=== PATIENT | female | born 2000 | race American Indian/Alaskan Native ===

== ENCOUNTER 2020-07-04 18:05 | Outpatient (CLI) | payer OTHER ==
[2020-07-04 18:51] VITALS: BP 121/78
== END 2020-07-04 19:12 | disposition home or self-care (01) ==
LOC: TRG 18:05 → APU 18:06 → TRG 19:12
PROVIDERS: ATTEND Obstetrics & Gynecology
DX: O42.92 Full-term premature rupture of membranes, unspecified as to length of time between rupture and onset of labor (principal); Z3A.38 38 weeks gestation of pregnancy
CPT/HCPCS: 59025

== ENCOUNTER 2020-07-22 20:35 | Inpatient (IN) | payer OTHER ==
[2020-07-22] MEDS ORDERED: DINOPROSTONE 10 MG VAG SUPP VG ONE (20:38)
[2020-07-22] MEDS ORDERED: TERBUTALINE 1 MG/1 ML INJ SUB-Q PRN (20:38)
[2020-07-22] MEDS ORDERED: fentaNYL 100 MCG/2 ML INJ IV PRN (20:38)
[2020-07-22] MEDS ORDERED: LIDOCAINE (2%) 20 MG/1 ML VIAL 20 ML MDV INFILTRATI ONE (20:38)
[2020-07-22] MEDS ORDERED: METHYLERGONOVINE MALEATE 0.2 MG/ML VIAL IM PRN (20:38)
[2020-07-22] MEDS ORDERED: ePHEDrine SULFATE 50 MG/1 ML INJ IV PRN (20:38)
[2020-07-22] MEDS ORDERED: ACETAMINOPHEN 325 MG TAB PO PRN (20:38)
[2020-07-22] MEDS ORDERED: MINERAL OIL 30 ML ORAL LIQD PO PRN (20:38)
[2020-07-22] MEDS ORDERED: OXYTOCIN 10 UNIT/1 ML INJ IM PRN (20:38)
[2020-07-22] MEDS ORDERED: miSOPROStol 200 MCG TAB PR PRN (20:38)
[2020-07-22] MEDS ORDERED: ONDANSETRON 4 MG/2 ML INJ IV PRN (20:38)
--- NOTE | 2020-07-22 20:45 | History and Physical Report ---
History of Present Illness Date of examination: 07/22/20 (pt presents for IOL @ 41w) Date of admission: 07/22/20 20:35 History of present illness: EDC Confirmation: 07/14/2020 Gestational Age: 41w Past History : 1 Term Births: 0 Premature Births: 0 Living Children: 0 Para: 0 Mult. Births: 0 Prev : 0 Aborta: 0 Elect. Ab: 0 Spont. Ab: 0 Ectopics: 0 Past Medical History: Reviewed history from 10/27/2019 and no changes required: Negative Past Medical History Past Surgical History: Reviewed history from 10/27/2019 and no changes required: negative Past Medical History Anesthesia Complications: negative Anemia: negative Autoimmune Disorder: negative Bleeding Disorder: negative Blood Transfusions: negative Breast Disease: negative Diabetes: negative Heart Disease: negative Hypertension: negative Hepatitis/Liver Disease: negative Kidney Disease/UTI: negative Neurologic/Epilepsy/Migraines: negative Phlebitis/Varicosities: negative Psychiatric: negative Pulmonary Disease/Asthma: negative Thyroid Disease: negative Hospitalizations: negative Surgery (Non-cable assembler): negative Abnormal PAP: negative TELLY Exposure: negative Infertility: negative Uterine Anomaly: negative Uterine Surgery (not C/S): negative Other Gynecologic Problems: negative Social Hx: Patient is single Smoking History: Patient has never smoked. +etoh, no tobacco, no drugs Infection History Hx of STD: none HIV Risk Eval: low risk Hepatitis B Risk Eval: low risk Personal hx. of genital herpes: no Partner hx. of genital herpes: no Rash, Viral, or Febrile illness since last LMP? no Varicella/Chicken Pox Status: No TB Risk: no Genetic History Congenital Heart Defect: Mom: no Dad: no Dimitri Disease: Mom: no Dad: no Thalassemia Mom: no Dad: no Neural Tube Defect Mom: no Dad: no Down's Syndrome Mom: no Dad: no Alfie-Sachs Mom: no Dad: no Sickle Cell Disease/Trait Mom: no Dad: no Hemophilia Mom: no Dad: no Muscular Dystrophy Mom: no Dad: no Cystic Fibrosis Mom: no Dad: no [place] Chorea Mom: no Dad: no Mental Retardation Mom: no Dad: no Fragile X Mom: no Dad: no Other Genetic/Chromosomal Disorder Mom: no Dad: no Child w/other defect Mom: no Dad: no Enviromental Exposures Xray Exposure: no Medication, drug, or alcohol use since LMP: no Chemical/Other Exposure: no Exposure to Cat Liter: no Hx of Parvovirus (Fifth Disease): no Occupational Exposure to Children: none Active Medications (reviewed today): None Current Allergies (reviewed today): * ADHESIVE (Critical) Past History - Obstetrical History Expected Date of Delivery: 07/14/20 Actual Gestation: 41 Week(s) 2 Day(s) : 1 Para: 0 Hx # Term Pregnancies: 0 Number of Pregnancies: 0 Spontaneous Abortions: 0 Induced : 0 Number of Living Children: 0 Medications and Allergies Allergies Allergy/AdvReac Type Severity Reaction Status Date / Time No Known Allergies Allergy Unverified 07/04/20 18:45 Home Medications Medication Instructions Recorded Confirmed Last Taken Type Ferrous Sulfate 324 MG 325 mg PO DAILY 07/22/20 07/22/20 07/22/20 History 325 MG No Known Home Medications [No 07/22/20 07/22/20 Unknown History Reported Home Medications] Active Meds: Active Medications Acetaminophen (Acetaminophen 325 Mg Tab) 650 mg PO Q4H PRN PRN Reason: Pain, Mild (1-3) Dinoprostone (Dinoprostone 10 Mg Vag Supp) 10 mg VG ONCE ONE Stop: 07/22/20 20:39 Ephedrine Sulfate (Ephedrine Sulfate 50 Mg/1 Ml Inj) 10 mg IV Q2M PRN PRN Reason: Hypotension Fentanyl (Fentanyl 100 Mcg/2 Ml Inj) 100 mcg IV Q2H PRN PRN Reason: Pain,Severe (7-10) LABOR PAIN Lactated Ringer's (Lactated Ringers) 1,000 mls @ 125 mls/hr IV DIRECT FADIA Oxytocin/Sodium Chloride (Pitocin/Ns 30 Unit/500ml) 30 units in 500 mls @ 40 mls/hr IV TITR FADIA; Protocol Lidocaine (Lidocaine (2%) 20 Mg/1 Ml Vial 20 Ml Mdv) 20 ml INFILTRATI ONCE ONE Stop: 07/22/20 20:39 Methylergonovine Maleate (Methylergonovine Maleate 0.2 Mg/Ml Vial) 0.2 mg IM ONCE PRN PRN Reason: Uterine Bleeding Mineral Oil (Mineral Oil 30 Ml Oral Liqd) 30 ml PO QHS PRN PRN Reason: Constipation Misoprostol (Misoprostol 200 Mcg Tab) 800 mcg SD ONCE PRN PRN Reason: Uterine Bleeding Ondansetron HCl (Ondansetron 4 Mg/2 Ml Inj) 4 mg IV Q8H PRN PRN Reason: Nausea And Vomiting Oxytocin (Oxytocin 10 Unit/1 Ml Inj) 10 unit IM ONCE PRN PRN Reason: Uterine Bleeding Terbutaline Sulfate (Terbutaline 1 Mg/1 Ml Inj) 0.25 mg SUB-Q ONCE PRN PRN Reason: Hyperstimulation/Hypertonicity - Physical Exam Breasts: Positive: deferred Cardiovascular: Regular rate, Normal S1, Normal S2 Lungs: Positive: Normal air movement Abdomen: Positive: normal appearance, soft, normal bowel sounds. Negative: distention, tenderness Genitourinary (Female): Positive: normal external genitalia Vulva: both: normal Vagina: Positive: normal moisture. Negative: discharge Cervix: Negative: lesion, discharge Uterus: Positive: normal size, normal contour Adnexa: both: normal Anus/Rectum: Positive: normal perianal skin, heme negative. Negative: rectal mass, hemorrhoids Extremities: Positive: normal Deep Tendon Reflex Grade: Normal +2 - Obstetrical FHR: auscultation normal, category 1 Uterine Contraction Monitor Mode: External Cervical Dilatation: 0 (per RN when cervidil ws placed) Cervical Effacement Percentage: 0 station: -2 Uterine Contraction Pattern: Irregular Uterine Tone Measurement Phase: Resting Uterine Contraction Intensity: Mild Results Result Diagrams: 07/22/20 21:20 All other labs normal. GBS POSITIVE HBsAg Screen Negative Negative *1 RPR Non Reactive Non Reactive *2 Rubella Antibodies, IgG 6.27 index Immune >0.99 *3 Non-immune <0.90 Equivocal 0.90 - 0.99 Immune >0.99 ABO Grouping O *4 Rh Factor Positive *5 Please note: Prior records for this patient's ABO / Rh type are not available for additional verification. Antibody Screen Negative Negative *6 WBC 7.2 x10E3/uL 3.4-10.8 *7 RBC 3.98 x10E6/uL 3.77-5.28 *8 Hemoglobin 12.1 g/dL 11.1-15.9 *9 Hematocrit 36.0 % 34.0-46.6 *10 MCV 91 fL 79-97 *11 MCH 30.4 pg 26.6-33.0 *12 MCHC 33.6 g/dL 31.5-35.7 *13 RDW 14.4 % 11.7-15.4 *14 Platelets 208 x10E3/uL 150-450 *15 Neutrophils 70 % Not Estab. *16 Lymphs 19 % Not Estab. *17 Monocytes 8 % Not Estab. *18 Eos 3 % Not Estab. *19 Basos 0 % Not Estab. *20 ! Immature Cells <No Reported Value> *21 Neutrophils (Absolute) 5.0 x10E3/uL 1.4-7.0 *22 Lymphs (Absolute) 1.3 x10E3/uL 0.7-3.1 *23 Monocytes(Absolute) 0.6 x10E3/uL 0.1-0.9 *24 Eos (Absolute) 0.2 x10E3/uL 0.0-0.4 *25 Baso (Absolute) 0.0 x10E3/uL 0.0-0.2 *26 ! Immature Granulocytes 0 % Not Estab. *27 ! Immature Grans (Abs) 0.0 x10E3/uL 0.0-0.1 *28 ! NRBC <No Reported Value> *29 Hematology Comments: <No Reported Value> *30 Tests: (2) HIV Ag/Ab with Reflex ([id number]) HIV Screen 4th Generation wRfx Non Reactive Non Reactive *31 Tests: (3) HCV Ab w/Rflx to Verification ([id number]) ! HCV Ab <0.1 s/co ratio 0.0-0.9 *32 Tests: (4) Comment: ([id number]) ! Comment: SPRCS *33 Non reactive HCV antibody screen is consistent with no HCV infection, unless recent infection is suspected or other evidence exists to indicate HCV infection. Assessment and Plan 20yo @ 41w for IOL GBS+ All orders in EMR - Patient Problems (1) Group B Streptococcus carrier state affecting Onset Date: ~07/22/20 Current Visit: Yes Status: Acute Plan to address problem: Ampicillin per protocol started
[2020-07-22] MEDS ORDERED: AMPICILLIN/NS 2 GM/100 ML 2 GM/100 ML BAG IV ONE (20:50)
[2020-07-22] MEDS ORDERED: AMPICILLIN/NS 1 GM/50 ML 1 GM/50 ML BAG IV SCH (21:00)
[2020-07-22] MEDS: LACTATED RINGERS 1,000 ML IV SCH (21:55)
[2020-07-22 22:23] LABS: Hematocrit 35.4 % (30.3-42.9); Hemoglobin 11.9 gm/dl (10.1-14.3); Mean Corpuscular HGB Conc 34 % (30-34); Mean Corpuscular Volume 90 fl (79-97); Platelet Count 182 K/mm3 (140-440); Red Blood Count 3.96 M/mm3 (3.65-5.03); Red Cell Distribution Width 18.3 % (13.2-15.2)
[2020-07-23] MEDS: LACTATED RINGERS 1,000 ML IV SCH ×4 (05:04→21:54)
[2020-07-23] MEDS ORDERED: AMPICILLIN/NS 2 GM/100 ML 2 GM/100 ML BAG IV ONE (06:45)
--- NOTE | 2020-07-23 07:38 | Progress Note ---
Assessment and Plan A: 20 y.o. @ 41+ wks, IOL for postdates. Cervical exam: 0/-3. P: Remove Cervidil @ 1045 AM. After Cervidil removal: Shower eat. Start Pitocin at noon. Cervical exam by 6pm, if unchanged, insert another Cervidil. Subjective - Subjective Date of service: 07/23/20 Principal diagnosis: IUP 41+, IOL for postdates Patient reports: movement normal Objective - Vital Signs Vital Signs: Vital Signs - 12hr 07/22/20 07/22/20 07/23/20 20:57 21:20 00:56 Temperature 98.1 F Pulse Rate 96 H 78 Respiratory 18 Rate Blood Pressure 123/72 135/88 07/23/20 07/23/20 01:20 05:20 Temperature 98.5 F 98.4 F Pulse Rate Respiratory Rate Blood Pressure - Exam Breasts: deferred Cardiovascular: Regular rate Lungs: Normal air movement Abdomen: Present: normal appearance, soft Vulva: both: normal Uterus: Present: normal FHR: category 1 Uterine Contraction Monitor Mode: External Cervical Dilatation: 0 Cervical Effacement Percentage: 30 station: -3 Uterine Contraction Pattern: Irregular Uterine Contraction Intensity: Mild Extremities: normal Deep Tendon Reflex Grade: Normal +2 - Labs Labs: Abnormal Labs 07/22/20 21:20 RDW 18.3 H Laboratory Results - last 24 hr 07/22/20 07/22/20 07/22/20 21:20 21:20 21:20 WBC 9.4 RBC 3.96 Hgb 11.9 Hct 35.4 MCV 90 MCH 30 MCHC 34 RDW 18.3 H Plt Count 182 Syphilis IgG Antibody Nonreactive Blood Type O POSITIVE Antibody Screen Negative
[2020-07-23] MEDS ORDERED: OXYTOCIN DRIP 30 UNITS/500 ML BAG IV SCH (12:00)
[2020-07-23] MEDS: OXYTOCIN DRIP 30 UNITS/500 ML BAG IV SCH (12:05)
--- NOTE | 2020-07-23 17:00 | Progress Note ---
Assessment and Plan A: 20 y.o. @ 41 + wks, IOL for postdates. Cervical exam 1.5/50/-3. SROM @ 2pm for clear fluids. P: Low does Pitocin for continued cervical ripening. Subjective - Subjective Date of service: 07/23/20 (SROM @ 2pm clear fluids) Principal diagnosis: IUP 41+, IOL for postdates Patient reports: movement normal Objective - Vital Signs Vital Signs: Vital Signs - 12hr 07/23/20 07/23/20 07/23/20 05:20 08:20 08:25 Temperature 98.4 F 97.9 F Pulse Rate 86 86 Respiratory 18 Rate Blood Pressure 120/79 Blood Pressure 120/79 [Right] 07/23/20 12:07 Temperature Pulse Rate 90 Respiratory Rate Blood Pressure 112/68 Blood Pressure [Right] - Exam Narrative Exam: Was informed by RN that patient had SROM at 2pm for clear fluids. Cervical exam 1.5/50/-3. Plan for the night discussed with patient. Will start continue Pitocin for now and then switch to low dose tonight. Pt verbalized understanding and agrees to plan. made Dr. Sahu aware of pt status. Breasts: deferred Cardiovascular: Regular rate Lungs: Normal air movement Abdomen: Present: normal appearance, soft Vulva: both: normal Uterus: Present: normal FHR: category 1 Uterine Contraction Monitor Mode: External Cervical Dilatation: 1.5 (Clear fluid on glove noted. ) Cervical Effacement Percentage: 50 station: -3 Uterine Contraction Pattern: Regular Uterine Tone Measurement Phase: Resting Uterine Contraction Intensity: Moderate Extremities: normal Deep Tendon Reflex Grade: Normal +2 - Labs Labs: Abnormal Labs 07/22/20 07/23/20 21:20 14:52 RDW 18.3 H Membranes Rupture Positive A Laboratory Results - last 24 hr 07/22/20 07/22/20 07/22/20 21:20 21:20 21:20 WBC 9.4 RBC 3.96 Hgb 11.9 Hct 35.4 MCV 90 MCH 30 MCHC 34 RDW 18.3 H Plt Count 182 Membranes Rupture Syphilis IgG Antibody Nonreactive Coronavirus (PCR) Blood Type O POSITIVE Antibody Screen Negative 07/23/20 07/23/20 14:52 Unknown WBC RBC Hgb Hct MCV MCH MCHC RDW Plt Count Membranes Rupture Positive A Syphilis IgG Antibody Coronavirus (PCR) Blood Type Antibody Screen
[2020-07-23] MEDS ORDERED: BUTORPHANOL 2 MG/1 ML INJ ONE (17:22)
[2020-07-23] MEDS: BUTORPHANOL 2 MG/1 ML INJ IV PRN ×2 (17:40→20:20)
--- NOTE | 2020-07-23 20:57 | Event Note ---
Date: 07/23/20 (Pt requesting more pain medication.) Per RN pt requesting more pain medication. Cervical exam /2, BBOW. AROM clear fluid. Category 1 strip currently. Will continue with Pitocin. Anticipate .
[2020-07-23] MEDS ORDERED: NalbUPHINE 10 MG/1 ML INJ IV PRN (21:52)
[2020-07-23] MEDS ORDERED: ePHEDrine SULFATE 50 MG/1 ML INJ IV PRN (21:52)
[2020-07-23] MEDS ORDERED: diphenhydrAMINE 50 MG/ML VIAL IV PRN (21:52)
[2020-07-23] MEDS ORDERED: NALOXONE 2 MG/2 ML INJ IV PRN (21:52)
[2020-07-23] MEDS ORDERED: fentaNYL-BUPIV 2 MCG/ML-0.125% 200 MCG/100 ML BAG EPIDURAL SCH (22:00)
--- NOTE | 2020-07-23 22:17 | Anesthesia Consultation ---
Anesthesia Consult and Med Hx Date of service: 07/23/20 - Airway Anesthetic Teeth Evaluation: Good ROM Head & Neck: Adequate Mental/Hyoid Distance: Adequate Mallampati Class: Class II Intubation Access Assessment: Probably Good - Pulmonary Exam CTA: Yes - Cardiac Exam Cardiac Exam: RRR - Pre-Operative Health Status ASA Pre-Surgery Classification: ASA2 Proposed Anesthetic Plan: Epidural - Pulmonary Hx Smoking: No Hx Asthma: No COPD: No Hx Pneumonia: No Hx Sleep Apnea: No - Cardiovascular System Hx Hypertension: No Hx Heart Attack/AMI: No Hx Angina: No - Central Nervous System Hx Seizures: No Hx Psychiatric Problems: No - Gastrointestinal Hx Gastroesophageal Reflux Disease: No - Endocrine Hx Renal Disease: No Hx End Stage Renal Disease: No Hx Insulin Dependent Diabetes: No Hx Non-Insulin Dependent Diabetes: No Hx Hypothyroidism: No Hx Hyperthyroidism: No - Hematic Hx Anemia: No Hx Sickle Cell Disease: No - Other Systems Hx Alcohol Use: No
--- NOTE | 2020-07-23 22:18 | Progress Note ---
Labor Epidural - Labor Epidural Start Time: 21:55 Stop Time: 22:10 Performed by:: JUNIOR AGARWAL Procedure: Patient is requesting a laboring epidural for laboring pain. Patient IDed, H&P reviewed, all questions and concerns were answered, and consent was signed. Timeout was performed at bedside. Patient in sitting position. Sterile prep and drape was performed. 3ml of 1% lidocaine skin wheal at L[3]- L [4]. 18- gauge Touhy epidural needle was advanced to loss of resistance with air technique. Negative CSF negative blood. Epidural catheter advanced to [12] centimeters. [-] Aspiration [-] test dose. Sterile dressing applied. Patient tolerated procedure.
[2020-07-24] MEDS ORDERED: SODIUM CHLORIDE 0.9% 1000 ML 1,000 ML ONE (00:26)
[2020-07-24] MEDS ORDERED: SODIUM CHLORIDE 0.9% 100 ML IVPB IV SCH (01:00)
[2020-07-24] MEDS ORDERED: BICITRA ORAL LIQD 30ML PO ONE (01:21)
[2020-07-24] MEDS ORDERED: METOCLOPRAMIDE 10 MG/2 ML INJ IV ONE (01:21)
[2020-07-24] MEDS ORDERED: FAMOTIDINE 20 MG/2 ML INJ IV ONE (01:21)
--- NOTE | 2020-07-24 01:26 | Event Note ---
Date: 07/24/20 (Primary ) Pt with unchanged cervical exam for the last 3 hours with category 2 monitor tracing. Discussed with patient little change in cervix and heart rate going down with contractions. We also discussed that at this time we are unable to titrate medication up higher without baby's heart rate going down. At this time it was recommended that the mode of delivery will possibly be a c- section. Pt verbalized understanding. Consents signed an on chart. Pre op orders on chart. RN taking care of patient, anesthesia, and supervisor propellant charge loading aware. Pt being prepped for .
[2020-07-24] MEDS ORDERED: ceFAZolin/Water 2 GM/20 ML 2 GM/20 ML SYRINGE IV ONE (02:07)
[2020-07-24] MEDS ORDERED: BUPIVACAINE/PF (0.5%) 5 MG/1 ML 30 ML VIAL INFILTRATI ONE (02:46)
[2020-07-24] MEDS ORDERED: LIDOCAINE 2%/EPINEPHRINE 1:200,000 VIAL (20 ML) INFILTRATI ONE (02:46)
[2020-07-24] MEDS ORDERED: KETOROLAC 30 MG/1 ML INJ ONE (02:46)
[2020-07-24] MEDS ORDERED: ONDANSETRON 4 MG/2 ML INJ ONE (02:46)
[2020-07-24] MEDS ORDERED: ceFAZolin/STERILE WATER 2 GM/20 ML SYRINGE IV ONE (03:35)
[2020-07-24] MEDS ORDERED: WATER FOR IRRIG STERILE 1,500 ML BOTTLE IR ONE (03:38)
[2020-07-24] MEDS ORDERED: SODIUM CHLORIDE 0.9% IRR 1,500 ML BOTTLE IR ONE (03:38)
[2020-07-24] MEDS: OXYTOCIN DRIP 30 UNITS/500 ML BAG IV SCH (03:45)
[2020-07-24] MEDS ORDERED: LACTATED RINGERS 1,000 ML ONE (03:57)
[2020-07-24] MEDS ORDERED: NALOXONE 0.4 MG/1 ML INJ IV PRN (04:20)
[2020-07-24] MEDS ORDERED: WITCH HAZEL/ GLYCERIN PAD TP PRN (04:20)
[2020-07-24] MEDS ORDERED: LANOLIN/ZINC/DIMETHICONE (LANSINOH) 7 GM TP PRN (04:20)
--- NOTE | 2020-07-24 04:24 | Operative Report ---
Operative Report Operative Report: Date of procedure: 07/24/2020 Pre-operative diagnosis: 41 weeks gestation intolerance to labor Failure to progress Post-operative diagnosis: Same plus nuchal cord x1 and OP presentation Procedure name(s): Primary low transverse section via Pfannenstiel skin incision Surgeon: Dr. Sahu [employer] Vice President: DARBY Anesthesia: Michelle Aguero certified nurse yard spotter EBL: 700 mL Urine output: 100 mL of urine at the end of the procedure. It should be noted that urine was blood-tinged prior to the onset of the procedure. Fluids: 1500 mL Findings: Liveborn female infant weight 7 pounds 8 ounces Apgars of 8 and 9 at 1 and 5 minutes LOP presentation Nuchal cord x1 Grossly normal fallopian tubes and ovaries bilaterally Indications: Patient presents for induction of labor secondary to post dates. Patient progressed approximately 4 cm from cervix remained unchanged for several hours. With the addition of Pitocin for labor augmentation patient was noted to have repetitive late decelerations. Decision was made at this time to proceed with primary section. All risks benefits and alternatives were discussed with the patient. Consents were signed and placed on the chart. Procedure: Patient was taking to the operating room. Patient was then prepped and draped in sterile fashion after anesthesia was found to be adequate. A low transverse skin incision was made with the scalpel and carried down to the underlying layer of fascia with the Bovie. The fascia was then incised in the midline and this incision was extended bilaterally with the Bovie. The superior aspect of the fascia was grasped with Kemi clamps tented upward and dissected off of the anterior rectus muscles with the scalpel. In similar fashion the inferior aspect of the fascia was grasped with Kemi clamps tented upward and dissected off of the anterior rectus muscles. The rectus muscles were then bluntly divided in the midline. The peritoneum was identified and entered into sharply. The bladder blade was placed. The bladder flap was created using the Metzenbaum scissors. The bladder blade was replaced. A lower transverse uterine incision was made with the scalpel and extended bilaterally with the bandage scissors. Artificial rupture of membranes was performed yielding [clear amniotic fluid]. The 's head was then delivered atraumatically. The anterior shoulder and rest of infant delivered without difficulty. The umbilical cord was clamped x2. The cord was cut. The was then placed in sterile bassinet. [The cord blood was collected.] The placenta was manually extracted in its entirety. The uterus was exteriorized and cleared of all clots and debris. The uterine incision was closed using 0 Vicryl in a running locking fashion. A second imbricating layer of the same suture was then created. The posterior cul-de-sac was copiously irrigated. The uterus was returned to the abdomen. The gutters were also irrigated. The anterior rectus muscles were reapproximated using 3-0 Vicryl. The anterior rectus fascia was reapproximated using 0 Vicryl in a running fashion. The subcuticular fat was reapproximated using 2-0 Vicryl in a running fashion. The skin was reapproximated with 4-0 Monocryl in a subcuticular stitch. The patient tolerated the procedure well. Sponge lap and needle counts were all correct x3. Patient was taken to the recovery room awake and in stable condition.
[2020-07-24] MEDS: KETOROLAC 30 MG/1 ML INJ IV PRN ×2 (08:23→15:38)
[2020-07-24] MEDS: HYDROcodone/ACETAMINOPHEN 5-325 MG TAB PO PRN ×3 (09:12→21:34)
[2020-07-24] MEDS: ceFAZolin/NS 1 GM/50 ML 1 GM/50 ML BAG IV SCH ×2 (09:15→17:30)
[2020-07-24] MEDS ORDERED: D5W/LACTATED RINGERS 1,000 ML IV SCH (10:00)
--- NOTE | 2020-07-24 10:53 | Post Anesthesia Evaluation ---
- Post Anesthesia Evaluation Patient Participated: Yes Airway Patent: Yes Stable Respiratory Function: Yes Nausea/Vomiting: No Temp > 96.8F: Yes Pain Manageable: Yes Adequeate Hydration: Yes Anesthesia Complications: No Block Receding Appropriately: Yes Patient on Ventilator: No
[2020-07-24 17:06] LABS: Hematocrit 28.7 % (30.3-42.9); Hemoglobin 9.4 gm/dl (10.1-14.3)
--- NOTE | 2020-07-24 19:00 | Event Note ---
Date: 07/24/20 Resting in bed, breast feeding. No complaints. Denies concerns, states she does not need anything at this time. Encouraged to call the office number if concerns/needs are not addressed.
[2020-07-24] MEDS: FERROUS SULFATE 325 MG TAB PO SCH (21:34)
[2020-07-25] MEDS: IBUPROFEN 800 MG TAB PO PRN ×3 (00:49→22:40)
[2020-07-25] MEDS: HYDROcodone/ACETAMINOPHEN 5-325 MG TAB PO PRN ×4 (05:43→23:27)
[2020-07-25] MEDS ORDERED: DIPHtheria,PERTUSSIS(ACELL),TETANUS VACCINE/PF 0.5 ML VIAL IM ONE (06:00)
--- NOTE | 2020-07-25 08:55 | Progress Note ---
Assessment and Plan A: 20 y.o. POD #1 s/p primary . P: Continue with care. Advance diet as tolerated. Encourage ambulation. Anticipate discharge home on 07/26. Subjective - Subjective Date of service: 07/25/20 (Pt doing okay.) Principal diagnosis: s/p primary , POD #1 Patient reports: appetite normal, voiding normally, pain well controlled, flatus, ambulating normally [place]: doing well Objective - Vital Signs Latest vital signs: Vital Signs Temp Pulse Resp BP BP Pulse Ox 07/25/20 00:00 98.6 F 66 16 108/76 07/24/20 20:32 98.3 F 107 H 18 128/78 99 07/24/20 15:56 98.1 F 83 16 117/73 98 07/24/20 11:47 98.9 F 89 16 123/75 97 07/24/20 08:58 82 135/88 Intake and Output 07/24/20 07/25/20 07/25/20 22:59 06:59 14:59 Intake Total 400 Output Total 350 Balance 50 Intake: Oral 400 Output: Urine 350 Indwelling Catheter 350 Other: Total, Intake Amount 200 Total, Output Amount 350 # Voids Void 1 - Exam Breasts: Present: deferred Cardiovascular: Present: Regular rate Lungs: Present: Normal air movement Abdomen: Present: normal appearance, soft Vulva: both: normal Uterus: Present: normal, firm Extremities: Present: edema (+1 edema to hands and feet) Deep Tendon Reflex Grade: Normal +2 Incision: Present: normal, dry, intact, other (No drainage noted on dressing.) - Labs Labs: Abnormal lab results 07/24/20 Range/Units 16:10 Hgb 9.4 L (10.1-14.3) gm/dl Hct 28.7 L D (30.3-42.9) %
[2020-07-25] MEDS: FERROUS SULFATE 325 MG TAB PO SCH (09:26)
[2020-07-26] MEDS: HYDROcodone/ACETAMINOPHEN 5-325 MG TAB PO PRN ×2 (05:26→11:40)
--- NOTE | 2020-07-26 08:27 | Discharge Summary ---
Providers - Providers Date of Admission: 07/22/20 20:35 Date of discharge: 07/26/20 (desires d/c home) Attending physician: CHENCHO SANCHES Primary care physician: CHENCHO SANCHES Hospitalization Reason for admission: IOL, postdates Condition: Good Pertinent studies: postop H&H 9.4/28.7, asymptomatic anemia d/t acute blood loss Procedures: primary c/s Hospital course: uncomplicated primary c/s and postop course Disposition: [place] TO HOME OR SELFCARE - Discharge Diagnoses (1) delivery delivered Status: Acute Core Measure Documentation - Palliative Care Palliative Care/ Comfort Measures: Not Applicable - Core Measures Any of the following diagnoses?: none Exam - Constitutional Vitals: Temp Pulse Resp BP Pulse Ox 98.0 F 76 18 136/93 100 07/26/20 07:30 07/26/20 07:30 07/26/20 07:30 07/26/20 07:30 07/26/20 07:30 General appearance: Present: no acute distress, well-nourished - EENT Eyes: Present: PERRL ENT: hearing intact, clear oral mucosa - Respiratory Respiratory effort: normal - Cardiovascular Rhythm: regular - Extremities Extremities: pulses symmetrical, No edema - Abdominal General gastrointestinal: Present: soft, non-tender, non-distended - Integumentary Integumentary: Present: clear, warm, dry - Musculoskeletal Musculoskeletal: gait normal, strength equal bilaterally - Psychiatric Psychiatric: appropriate mood/affect, intact judgment & insight - Neurologic Neurologic: CNII-XII intact, moves all extremities - Additional findings Additional findings: , lochia scant, fundus firm, incision D&I Plan Activity: advance as tolerated Wound: open to air, keep clean and dry Follow up with: CHENCHO SANCHES MD [Primary Care Provider] - 7 Days (Congratulations!! Please call [phone] to schedule your incision check. Call for any questions or concerns.) Prescriptions: Docusate Sodium [Colace] 100 mg PO BID PRN #60 capsule PRN Reason: Constipation Ibuprofen [Motrin 800 MG tab] 800 mg PO Q8HR PRN #30 tablet PRN Reason: Pain, Moderate (4-6) oxyCODONE /ACETAMINOPHEN [Percocet 5/325] 1 tab PO Q4HR #30 tab
[2020-07-26] MEDS: FERROUS SULFATE 325 MG TAB PO SCH (11:40)
[2020-07-26 17:43] VITALS: BP 131/90
== END 2020-07-26 12:20 | disposition home or self-care (01) | DRG 787 ==
LOC: LD 20:35 → OB 07-24 05:53
PROVIDERS: ADMIT Obstetrics & Gynecology; ATTEND Obstetrics & Gynecology
PROC: 3E0R3BZ Introduction of Anesthetic Agent into Spinal Canal, Percutaneous Approach (ICD-10-PCS; 2020-07-23)
PROC: 00HU33Z Insertion of Infusion Device into Spinal Canal, Percutaneous Approach (ICD-10-PCS; 2020-07-23)
PROC: 10D00Z1 Extraction of Products of Conception, Low, Open Approach (ICD-10-PCS; principal; 2020-07-24)
PROC: 3E0P7VZ Introduction of Hormone into Female Reproductive, Via Natural or Artificial Opening (ICD-10-PCS; 2020-07-24)
DX: O99.824 Streptococcus B carrier state complicating childbirth (principal); D62 Acute posthemorrhagic anemia; O48.0 Post-term pregnancy; Z20.822 Contact with and (suspected) exposure to COVID-19; O61.9 Failed induction of labor, unspecified; Z3A.41 41 weeks gestation of pregnancy; Z37.0 Single live birth
CPT/HCPCS: 36415; 59200; 84112; 85014; 85018; 85027; 86592; 86850; 86900; 86901; 88307; G0378; J0290; J0595; J0690; J1885; J2405; J2590; J2765; J7030; J7120; J7121; U0003